=== PATIENT | male | born 1975 | race Caucasian/White ===

== ENCOUNTER 2020-11-08 08:19 | Outpatient (REF) | payer MEDICAID, SELFPAY ==
--- NOTE | ~2020-11-08 | XR_ITS ---
EXAMINATION: PELVIS AND RIGHT HIP X-RAY CLINICAL INFORMATION: Pain COMPARISON: None TECHNIQUE: One view of the pelvis and 2 views of the right hip FINDINGS: There are postsurgical changes with plate and screws seen in the right acetabulum. Orthopedic hardware appears intact. There is severe arthritis at the right hip joint with joint space narrowing, osteophyte formation and subchondral cyst formation. There is a flattening of the right femoral head. The very mild arthritis at the left hip joint with small osteophytes. Bones of the pelvis are otherwise unremarkable. There are degenerative changes of the visualized lower lumbar spine. Soft tissues are unremarkable. XR/XR pelvis 1-2V IMPRESSION: Postsurgical changes to the right acetabulum with plate and screws. Severe right hip arthritis.
--- NOTE | ~2020-11-08 | XR_ITS ---
EXAMINATION: PELVIS AND RIGHT HIP X-RAY CLINICAL INFORMATION: Pain COMPARISON: None TECHNIQUE: One view of the pelvis and 2 views of the right hip FINDINGS: There are postsurgical changes with plate and screws seen in the right acetabulum. Orthopedic hardware appears intact. There is severe arthritis at the right hip joint with joint space narrowing, osteophyte formation and subchondral cyst formation. There is a flattening of the right femoral head. The very mild arthritis at the left hip joint with small osteophytes. Bones of the pelvis are otherwise unremarkable. There are degenerative changes of the visualized lower lumbar spine. Soft tissues are unremarkable. XR/XR hip RT min 2V IMPRESSION: Postsurgical changes to the right acetabulum with plate and screws. Severe right hip arthritis.
== END 2020-11-08 08:20 | disposition home or self-care (01) ==
LOC: HO.HOSX 08:19
PROVIDERS: Visit Provider Physician Assistant
DX: M25.551 Pain in right hip (principal)
CPT/HCPCS: 72170; 73502; 99202

== ENCOUNTER 2020-12-22 07:57 | Outpatient (REF) | payer MEDICAID, SELFPAY | END 2020-12-22 07:58 | disposition home or self-care (01) | LOC: HO.CT 07:57 | PROVIDERS: Visit Provider Physician Assistant | DX: Z13.89 Encounter for screening for other disorder (principal) ==

== ENCOUNTER 2021-02-26 16:02 | Outpatient (REF) | payer MEDICAID, SELFPAY ==
--- NOTE | ~2021-02-26 | CT_ITS ---
EXAMINATION: CT HIP WITHOUT CONTRAST, RIGHT CLINICAL INFORMATION: Right hip pain. COMPARISON: Pelvic and right hip radiographs dated 11/08/2020. TECHNIQUE: Contiguous axial CT images of the right hip were obtained without contrast. Multiplanar reformats were provided and reviewed. This CT examination was performed using dose optimization techniques as appropriate, variously including the following: *Automated exposure control *Adjustment of mA and/or kV according to patient size (this includes techniques or standardized protocols for targeted exams where dose is matched to indication/reason for exam; i.e. extremities or head) *Use of iterative reconstruction technique DLP: 238 mGy-cm. FINDINGS: Redemonstration of severe superior joint space narrowing with prominent bony remodeling and flattening of the humeral head. Severe subchondral cystic change and subchondral sclerosis with large marginal osteophytes. Multiple ossified loose bodies. No acute fracture or dislocation. Stabilization plate along the posterior aspect of the right iliac without hardware fracture. No perihardware lucency to suggest loosening or infection. No concerning lytic or blastic osseous lesion. The visualized intrapelvic structures are unremarkable. No abnormal soft tissue mass or fluid collection. The visualized muscles and tendons are grossly intact, although evaluation is limited on CT examination. CT/CT hip RT wo con IMPRESSION: 1. Severe right hip osteoarthritis with prominent bony remodeling, similar when compared to prior radiographs. Multiple ossified loose bodies are again noted. 2. No acute fracture or dislocation. 3. Right iliac orthopedic hardware without evidence of complication.
== END 2021-02-26 16:03 | disposition home or self-care (01) ==
LOC: HO.CT 16:02
PROVIDERS: Visit Provider Physician Assistant
DX: M25.551 Pain in right hip (principal)
CPT/HCPCS: 73700

== ENCOUNTER → 2021-03-08 14:26 | Outpatient (BNVA) | payer MEDICAID, SELFPAY | PROVIDERS: Visit Provider Physician Assistant | DX: M16.51 Unilateral post-traumatic osteoarthritis, right hip (principal) | CPT/HCPCS: 99212 ==

== ENCOUNTER → 2021-04-02 14:45 | Outpatient (BNVA) | payer MEDICAID, SELFPAY | PROVIDERS: Visit Provider Orthopaedic Surgery | DX: M16.51 Unilateral post-traumatic osteoarthritis, right hip (principal) | CPT/HCPCS: 99212 ==

== ENCOUNTER → 2021-04-17 09:06 | Outpatient (BNVA) | payer MEDICAID, SELFPAY | PROVIDERS: Visit Provider Orthopaedic Surgery | DX: Z01.812 Encounter for preprocedural laboratory examination (principal); Z01.810 Encounter for preprocedural cardiovascular examination | CPT/HCPCS: 36415; 80048; 85025 ==

== ENCOUNTER → 2021-05-17 09:34 | Outpatient (BNVA) | payer MEDICAID, SELFPAY | PROVIDERS: Visit Provider Physician Assistant | DX: Z01.818 Encounter for other preprocedural examination (principal); M16.51 Unilateral post-traumatic osteoarthritis, right hip | CPT/HCPCS: 99212 ==

== ENCOUNTER 2021-05-22 06:05 | Inpatient (IN) | payer MEDICAID, SELFPAY ==
--- NOTE | 2021-04-17 10:28 | ECG_ITS ---
Test Reason : preop Blood Pressure : / mmHG Vent. Rate : 058 BPM Atrial Rate : 058 BPM P-R Int : 154 ms QRS Dur : 088 ms QT Int : 440 ms P-R-T Axes : 057 009 031 degrees QTc Int : 431 ms Sinus bradycardia Otherwise normal ECG No previous ECGs available Referred By: Justin Szymanski Electronically Signed By:SERA MCCLURE
[2021-05-15 11:56] VITALS: BP 158/99; PULSE 64; RESP 16; O2SAT 99; BMI 32.1
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
[2021-05-15 15:24] LABS: MRSA Nasal PCR NEGATIVE (Negative); SA Nasal PCR NEGATIVE (Negative)
[2021-05-22] VITALS (20 sets, daily range): BP systolic 118–183; BP diastolic 80–116; PULSE 71–93; RESP 14–20; TEMP 36.4–37.7; O2SAT 94–100
--- NOTE | ~2021-05-22 | XR_ITS ---
EXAMINATION: XR PELVIS CLINICAL INFORMATION: Post right hip replacement COMPARISON: Previous x-ray most recent October [address] February 2021 TECHNIQUE: AP view of the pelvis. FINDINGS: There is a new right hip replacement in satisfactory position. No fracture or dislocation is seen. There is orthopedic hardware in the right iliac bone that appears unchanged. Bones of the pelvis are otherwise unremarkable. The left hip joint is unremarkable. There are degenerative changes of the visualized lower lumbar spine. There are postsurgical changes to the soft tissues. XR/XR pelvis 1-2V IMPRESSION: Satisfactory appearance of right hip replacement.
[2021-05-22] MEDS: oxyCODONE HCl ER 10 MG TAB.ER.12H PO ×2 (06:43→20:10)
[2021-05-22 06:59] LABS: Hematocrit 41.7 % (42.0-52.0); Hemoglobin 14.5 g/dl (14.0-18.0); Mean Corpuscular HGB Conc 34.8 g/dl (31.0-36.0); Mean Corpuscular Hemoglobin 31.5 pg (27.0-33.0); Mean Corpuscular Volume 90.7 fL (80.0-98.0); Mean Platelet Volume 10.2 fL (9.4-12.4); Platelet Count 247 X10*3/uL (160-400); Red Cell Distribution Width 11.9 % (11.0-16.0); White Blood Count 6.8 X10*3/uL (4.8-10.8)
[2021-05-22 07:04] LABS: INTERNATIONAL NORM RATIO 0.9 (0.9-1.1); Prothrombin Time 10.5 SEC (9.9-13.0)
[2021-05-22 07:13] LABS: COVID-19 Test Negative (Negative); IDNOW Serial# 08D9AD1C
[2021-05-22 07:20] LABS: Alanine Aminotransferase 15 U/L (0-40); Albumin Level 4.1 g/dL (3.5-5.0); Alkaline Phosphatase 110 U/L (39-117); Anion Gap 11 (12-20); Aspartate Amino Transferase 20 U/L (5-37); Bilirubin Total 0.7 mg/dL (0.0-1.0); Blood Urea Nitrogen 18 mg/dL (9-16); Calcium 8.9 mg/dL (8.4-10.2); Carbon Dioxide 29 mmol/L (22-29); Chloride 107 mmol/L (96-108); Creatinine Clr Calc Pharmacy 87.8; Estimated Glomerular Filt Rate > 60; Glucose Fasting 106 mg/dL (60-99); Potassium 4.8 mmol/L (3.3-5.1); Sodium 142 mmol/L (135-145); Total Protein 7.1 g/dL (6.5-8.0)
[2021-05-22] MEDS: Lactated Ringers 1,000 ML 100 ML IVCONT (07:32)
--- NOTE | 2021-05-22 09:47 | MHC.SHP ---
Pre-Procedural Eval Section A Date of Service: 05/22/21 The patient is an INPATIENT: No Changes since office visit: Yes Patient answered all questions; No Cold of Flu in the past 2 weeks, No New Medical Problems and No Changes in Medication The History & Physical has been completed within 30 days and I have reviewed it.: Yes Section B Chief Complaint: RT MICHAEL Allergies: Allergies Allergy/AdvReac Type Severity Reaction Status Date / Time No Known Allergies Allergy Verified 05/17/21 09:42 [No Known Allergies*] Plan I have reviewed the history and physical and performed a pertinent physical examination on my patient. No changes have occurred unless specified.
--- NOTE | 2021-05-22 09:48 | P.BOP_ITS ---
Brief Operative Note Date of Service: 05/22/21 Pre-op diagnosis: Right hip OA Post-op diagnosis: same Procedure: Right MICHAEL Implants: Charlie trident2 52/ 20 deg liner and accolade 2 127 deg #5 with + 5/ 36 ceramic head Surgeon: Justin Szymanski MD Anesthesia: GETA and local Was an [employer] used for this Procedure?: Yes [employer] Sawyer: Sherri Hobbs Estimated blood loss (mL): 200 Pathology: other Condition: stable Disposition: PACU
[2021-05-22] MEDS: HYDROmorphone HCl 0.5 MG/0.5 ML SYRINGE 0.25 MG IVPUSH ×7 (09:54→22:57)
[2021-05-22] MEDS: oxyCODONE HCl Immed Release 5 MG TABLET 10 MG PO ×2 (10:14→20:09)
[2021-05-22] MEDS: fentaNYL citrate/PF 100 MCG/2 ML VIAL 25 MCG IVPUSH ×4 (10:15→10:30)
[2021-05-22] MEDS: Dextrose 5 % and 0.45 % NaCl 1,000 ML 80 ML IVCONT (12:38)
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
[2021-05-22] MEDS: PHENobarbitaL sodium 130 MG/ML VIAL 212 MG IM (17:14)
[2021-05-22] MEDS: Docusate Sodium 100 MG CAPSULE PO (20:10)
[2021-05-22] MEDS: PHENobarbitaL sodium 65 MG/ML VIAL 159 MG IM ×2 (20:10→22:56)
[2021-05-22] MEDS: Celecoxib 200 MG CAPSULE PO (20:10)
[2021-05-23] VITALS (8 sets, daily range): BP systolic 124–145; BP diastolic 64–84; PULSE 66–93; RESP 17–18; TEMP 36.3–37.3; O2SAT 97–100
[2021-05-23] MEDS: Dextrose 5 % and 0.45 % NaCl 1,000 ML 80 ML IVCONT (03:00)
[2021-05-23] MEDS: HYDROmorphone HCl 0.5 MG/0.5 ML SYRINGE 0.25 MG IVPUSH ×3 (03:00→23:57)
--- NOTE | 2021-05-23 08:26 | P.PNOP_ITS ---
Subjective Subjective Date of Service: 05/23/21 Interval history: Postop day 1 status post right total hip arthroplasty Patient states he has some discomfort in the right leg but tolerating well. He has been up and out of bed Denies shortness of breath chest pain or palpitations. Physical Exam Vital Signs: Vital Signs: Last Vital Signs Temp 98.5 F 05/23/21 08:00 Pulse 66 05/23/21 08:00 Resp 18 05/23/21 08:00 BP 143/83 H 05/23/21 08:00 Pulse Ox 99 05/23/21 08:00 Body Mass Index 32.1 Const: General: cooperative, healthy appearing and no acute distress Resp: Effort & Inspection: normal respiratory effort and able to speak in complete sentences Cardio: Rate: regular rate Peripheral pulses: Peripheral pulses 2+ throughout GI: Palpation (GI): Soft to palpation Skin: General skin exam: no rashes or lesions noted Extrem: Other: Right hip bandage intact. There is mild swelling and tenderness to the incision area. Neurovascularly intact. Procedures Date of Service Date of Service: 05/23/21 Progress Note: A&P Assessment and plan (1) History of total right hip arthroplasty: Status: Acute Assessment and Plan: Continue pain management Begin Lovenox for DVT prophylaxis Physical therapy and occupational therapy for right total hip arthroplasty with posterior precautions Dispo planning: PT eval and pain management Fall Risk Details Current Medications: Current Medications Acetaminophen (Acetaminophen 325 Mg Tablet) 650 mg PO Q6H PRN PRN Reason: Pain, Mild (Pain Scale 1-3) Aspirin (Aspirin 325 Mg Tablet) 325 mg PO BID [facility] Celecoxib (Celecoxib 200 Mg Capsule) 200 mg PO BID [facility] Last Admin: 05/22/21 20:10 Dose: 200 mg Documented by: Docusate Sodium (Docusate Sodium 100 Mg Capsule) 100 mg PO BID [facility] Last Admin: 05/22/21 20:10 Dose: 100 mg Documented by: Folic Acid (Folic Acid 1 Mg Tablet) 1 mg PO DAILY [facility] Stop: 05/25/21 09:01 Hydromorphone HCl (Hydromorphone Hcl 0.5 Mg/0.5 Ml Syringe) 0.25 mg IVPUSH Q4H PRN; Protocol PRN Reason: Pain, Severe (Pain Scale 7-10) Last Admin: 05/23/21 03:00 Dose: 0.25 mg Documented by: Dextrose/Sodium Chloride (D51/2ns) 1,000 mls @ 80 mls/hr IVCONT .[id number] [facility] Last Admin: 05/23/21 03:00 Dose: 80 mls/hr Documented by: Medication (No Benzodiazepines) 1 each MISCELLANE DAILY [facility] Ondansetron HCl (Ondansetron Hcl 4 Mg/2 Ml Vial) 4 mg IVPUSH Q8H PRN PRN Reason: Nausea and Vomiting Oxycodone HCl (Oxycodone Hcl Immed Release 5 Mg Tablet) 10 mg PO Q4H PRN PRN Reason: Pain, Moderate (Pain Scale 4-6 Last Admin: 05/22/21 20:09 Dose: 10 mg Documented by: Oxycodone HCl (Oxycodone Hcl Er 10 Mg Tab.Er.12h) 10 mg PO BID [facility] Last Admin: 05/22/21 20:10 Dose: 10 mg Documented by: Phenobarbital (Phenobarbital 15 Mg Tablet) 45 mg PO BID [facility]; Protocol Stop: 05/24/21 21:01 Phenobarbital (Phenobarbital 30 Mg Tablet) 30 mg PO BID [facility]; Protocol Stop: 05/26/21 21:01 Phenobarbital (Phenobarbital 30 Mg Tablet) 30 mg PO DAILY [facility]; Protocol Stop: 05/28/21 09:01 Sodium Chloride (0.9 % Sodium Chloride Flush 3 Ml Syringe) 3 ml IVFLUSH QSHIFT [facility] Last Admin: 05/23/21 01:31 Dose: Not Given Documented by: Thiamine HCl (Thiamine Hcl 100 Mg Tablet) 100 mg PO DAILY [facility] Stop: 05/25/21 09:01 Time Spent With Patient Time: Total time spent is greater than 50% in coordination of care (as documented) at patient's floor/unit and/or counseling patient: Time with patient: 15 - 24 minutes Quality Stroke Does the patient have a stroke diagnosis?: No VTE Prior VTE?: Yes VTE Risk Level:: Surgical - very high VTE Device Contraindication: N/A - Device Ordered VTE Drug Contraindication: N/A - Med Ordered
[2021-05-23] MEDS: PHENobarbitaL 15 MG TABLET 45 MG PO ×2 (08:27→20:34)
[2021-05-23] MEDS: Docusate Sodium 100 MG CAPSULE PO ×2 (08:27→20:34)
[2021-05-23] MEDS: 0.9 % Sodium Chloride Flush 3 ML SYRINGE IVFLUSH ×3 (08:28→23:57)
[2021-05-23] MEDS: Thiamine HCL 100 MG TABLET PO (08:28)
[2021-05-23] MEDS: Celecoxib 200 MG CAPSULE PO ×2 (08:28→20:34)
[2021-05-23] MEDS: Folic Acid 1 MG TABLET PO (08:28)
[2021-05-23] MEDS: oxyCODONE HCl ER 10 MG TAB.ER.12H PO ×2 (08:28→20:34)
[2021-05-23 09:37] LABS: Basophils Percent Auto 0.3 % (0-2); Eosinophils Absolute Auto 0.1 X10*3/uL (0.0-0.4); Eosinophils Percent Auto 0.5 % (0-4); Hematocrit 28.8 % (42.0-52.0); Imm Gran Abs Auto 0.09 X10*3/uL (0.00-0.03); Imm Gran Pct Auto 0.6 % (0.0-0.4); Lymphocytes Absolute Auto 2.2 X10*3/uL (1.2-4.9); Lymphocytes Percent Auto 14.9 % (20-40); MANUAL DIFF FLAG SCAN; Mean Corpuscular HGB Conc 34.7 g/dl (31.0-36.0); Mean Corpuscular Hemoglobin 31.4 pg (27.0-33.0); Mean Corpuscular Volume 90.6 fL (80.0-98.0); Mean Platelet Volume 11.1 fL (9.4-12.4); Monocytes Absolute Auto 1.6 X10*3/uL (0.1-1.2); Monocytes Percent Auto 10.7 % (2-11); Neutrophils Absolute Auto 10.9 x10*3/uL (2.0-8.3); Platelet Count 192 X10*3/uL (160-400); Red Blood Count 3.18 X10*6/uL (4.60-5.80); Red Cell Distribution Width 11.9 % (11.0-16.0); SCAN SMEAR FLAG 1; White Blood Count 14.9 X10*3/uL (4.8-10.8)
[2021-05-23] MEDS: oxyCODONE HCl Immed Release 5 MG TABLET 10 MG PO ×2 (09:42→14:43)
[2021-05-23] MEDS: Acetaminophen 325 MG TABLET 650 MG PO (09:42)
[2021-05-23] MEDS: Enoxaparin Sodium 40 MG/0.4 ML SYRINGE SUBCUT (09:42)
[2021-05-23 09:51] LABS: Anion Gap 12 (12-20); Blood Urea Nitrogen 14 mg/dL (9-16); Carbon Dioxide 25 mmol/L (22-29); Chloride 105 mmol/L (96-108); Creatinine Clr Calc Pharmacy 110.3; Estimated Glomerular Filt Rate > 60; Glucose Fasting 95 mg/dL (60-99); Potassium 4.2 mmol/L (3.3-5.1); Sodium 138 mmol/L (135-145)
[2021-05-23 10:19] LABS: SLIDE REVIEW VERIFIED
--- NOTE | 2021-05-23 13:37 | MHC.CM.PN ---
met with pt who will be dcd tomorrow pt is receommending home with physical therapy referral to [facility] pt will be going to s/o home when dcd [address] rosa notified
--- NOTE | 2021-05-23 13:38 | HO.POSTANES ---
Post Anesthesia Evaluation Post Anesthesia Evaluation Vital Signs: Vital Signs Temp Pulse Resp BP Pulse Ox 05/23/21 11:39 99.1 F 84 18 124/64 98 05/23/21 09:25 66 143/83 H 99 05/23/21 08:00 98.5 F 66 18 143/83 H 99 05/23/21 04:00 97.4 F 77 17 142/84 H 99 Anesthesia: General Mental Status: Awake Pain Control: Satisfactory Nausea/Vomiting: None Hydration: Adequate Anesthesia-Related Issues: No Anes. Related Issues
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
[2021-05-24] VITALS (7 sets, daily range): BP systolic 110–131; BP diastolic 55–68; PULSE 68–85; RESP 16–18; TEMP 36.9–37.1; O2SAT 98
[2021-05-24] MEDS: HYDROmorphone HCl 0.5 MG/0.5 ML SYRINGE 0.25 MG IVPUSH (05:35)
[2021-05-24 05:46] LABS: Hematocrit 23.1 % (42.0-52.0); Hemoglobin 7.8 g/dl (14.0-18.0); Mean Corpuscular HGB Conc 33.8 g/dl (31.0-36.0); Mean Corpuscular Hemoglobin 31.3 pg (27.0-33.0); Mean Corpuscular Volume 92.8 fL (80.0-98.0); Mean Platelet Volume 11.3 fL (9.4-12.4); Platelet Count 158 X10*3/uL (160-400); Red Blood Count 2.49 X10*6/uL (4.60-5.80); Red Cell Distribution Width 12.1 % (11.0-16.0); White Blood Count 10.2 X10*3/uL (4.8-10.8)
[2021-05-24 06:09] LABS: Anion Gap 10 (12-20); Blood Urea Nitrogen 16 mg/dL (9-16); Calcium 7.7 mg/dL (8.4-10.2); Carbon Dioxide 26 mmol/L (22-29); Chloride 107 mmol/L (96-108); Estimated Glomerular Filt Rate > 60; Glucose Fasting 101 mg/dL (60-99); Potassium 4.3 mmol/L (3.3-5.1); Sodium 139 mmol/L (135-145)
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
[2021-05-24] MEDS: Celecoxib 200 MG CAPSULE PO (08:57)
[2021-05-24] MEDS: Folic Acid 1 MG TABLET PO (08:57)
[2021-05-24] MEDS: Docusate Sodium 100 MG CAPSULE PO (08:57)
--- NOTE | 2021-05-24 08:57 | P.DS_ITS ---
DS: Providers Provider Date of Service: 05/26/21 Date of admission: 05/22/21 06:05 Primary care physician: Unknown Physician Consults: 05/22/21 11:23 Consult to Hospitalist Routine Consulting Provider: Hospitalist Reason For Exam: medical management, ETOH Use DS: Diagnosis Discharge Diagnosis (1) History of total right hip arthroplasty: Status: Acute DS: Summary Hospital Course Hospital Course: The patient underwent a successful rigth total hip arthroplasty, was transferred to PACU and then to the floor to recover. During their stay, their vitals were stable, afebrile at 98.7 . Labs were unremarkable, H/H 7.8/23.1, but he was asymptomatic. Plan was to check h/h outpatient and transfuse prn. POD 1 he was started on Lovenox for DVT ppx, they also received PT/OT services twice a day. Prior to discharge, their dressing was change, incision clean dry and intact, new Aquacel dressing applied and the plan was to be discharged home with VNA svs Time Spent with Patient Time attestation: Total time spent providing and/or coordinating discharge services: Discharge coordination time: Less than 30 minutes Quality: Stroke Does the patient have a stroke diagnosis?: No Physical Exam Vital Signs: Vital Signs: Last Vital Signs Temp 98.4 F 05/24/21 04:00 Pulse 72 05/24/21 04:00 Resp 18 05/24/21 06:34 BP 130/64 05/24/21 04:00 Pulse Ox 98 05/24/21 06:05 Body Mass Index 32.1 Const: General: cooperative, healthy appearing and no acute distress Resp: Effort & Inspection: normal respiratory effort and able to speak in complete sentences Cardio: Rate: regular rate Peripheral pulses: Peripheral pulses 2+ throughout GI: Palpation (GI): Soft to palpation Skin: General skin exam: no rashes or lesions noted Extrem: Other: incision clean dry and intact. Declo intact. No erythema or effusion. Calf supple nontender. Neurovascularly intact. DS: Data Data Completed and Pending Completed studies during hospitalization [Text1]: Pending at discharge 05/22/21 09:15 Surgical [PTH] Routine Labs on day of discharge: Laboratory Results - last 24 hr 05/23/21 05/23/21 05/24/21 08:40 08:40 05:22 WBC 14.9 H 10.2 RBC 3.18 L D 2.49 L D Hgb 10.0 L D 7.8 L D Hct 28.8 L D 23.1 L MCV 90.6 92.8 MCH 31.4 31.3 MCHC 34.7 33.8 RDW 11.9 12.1 Plt Count 192 158 L MPV 11.1 11.3 Immature Gran % (Auto) 0.6 H Neut % (Auto) 73.0 Lymph % (Auto) 14.9 L [place] % (Auto) 10.7 Eos % (Auto) 0.5 Baso % (Auto) 0.3 Lymph # (Auto) 2.2 [place] # (Auto) 1.6 H Eos # (Auto) 0.1 Baso # (Auto) 0.0 Abs Immat Gran (auto) 0.09 H Absolute Neuts (auto) 10.9 H Absolute Nucleated RBC 0.000 0.000 Nucleated RBC % (auto) 0.0 0.0 Smear Tech's Comments VERIFIED Sodium 138 Potassium 4.2 Chloride 105 Carbon Dioxide 25 Anion Gap 12 BUN 14 Creatinine 0.90 Estim Creat Clear Calc 110.3 Estimated GFR > 60 Fasting Glucose 95 Calcium 8.0 L D 05/24/21 05:22 WBC RBC Hgb Hct MCV MCH MCHC RDW Plt Count MPV Immature Gran % (Auto) Neut % (Auto) Lymph % (Auto) [place] % (Auto) Eos % (Auto) Baso % (Auto) Lymph # (Auto) [place] # (Auto) Eos # (Auto) Baso # (Auto) Abs Immat Gran (auto) Absolute Neuts (auto) Absolute Nucleated RBC Nucleated RBC % (auto) Smear Tech's Comments Sodium 139 Potassium 4.3 Chloride 107 Carbon Dioxide 26 Anion Gap 10 L BUN 16 Creatinine 0.91 Estim Creat Clear Calc 109.0 Estimated GFR > 60 Fasting Glucose 101 H Calcium 7.7 L Discharge Plan Discharge Patient Disposition: Home Health Service Discharge Diagnosis: s/p RT MICHAEL Referrals: Ralph LYNN [Outside] - 1 Day ([facility] FOR LOVENOX AND HOME PHYSICAL THERAPY, START OF CARE WILL BE TOMORROW 05/25/21. ) Lawanda Hollins PA-C [Physician Top Polisher] - 2 Weeks (06/04/21 09:00 [facility] Lawanda Hollins PA-C) Discharge Medications: New celecoxib 200 mg Capsule 200 mg PO BID 30 Days Qty: 60 RF: 0 acetaminophen 325 mg Tablet 650 mg PO Q6H PRN (Reason: Pain, Mild (Pain Scale 1-3)) 30 Days Qty: 240 RF: 0 enoxaparin 40 mg/0.4 mL Syringe 40 mg subcut Q24H 42 Days Qty: 16.8 RF: 0 oxycodone 10 mg tablet 10 mg PO Q4H PRN (Reason: Pain, Moderate (Pain Scale 4-6) 7 Days Qty: 42 RF: 0 docusate sodium 100 mg Capsule 100 mg PO BID 30 Days Qty: 60 RF: 0 Continued gabapentin 800 mg Tablet 800 mg PO BID RF: 0 lisinopril 40 mg tablet 1 tab PO DAILY RF: 0 hydrochlorothiazide 12.5 mg Tablet 12.5 mg PO DAILY RF: 0 (DME) Raised toilet seat See Rx Instructions .ROUTE .MEDSUPPLY Qty: 1 RF: 0 (DME) walker Misc See Rx Instructions .MEDSUPPLY Qty: 1 RF: 0 Discontinued ibuprofen 800 mg Tablet 800 mg PO Q8H PRN (Reason: Pain) RF: 0 acetaminophen 325 mg tablet 650 mg PO Q4-6H PRN (Reason: fever or pain) 7 Days Qty: 30 RF: 0 Discharge Orders: Discharge Order (Routine); Ordered 05/24/21 Ordered By: Sherri Hobbs Diet: regular diet Activity on Discharge: Use cane or walker Stand Alone Forms: Patient Portal Discharge page Care Plan Goals: Restore function of joint Health Concerns: none Plan of Treatment: Physical Therapy Pain management DVT prophylaxis Assessment: * Physical Therapy for Total hip arthroplasty: posterior precautions, gait training, ROM, strength * Limit stair climbing * No showering, no tub bath-keep dressing clean, dry and intact * No driving x6 weeks * Continue Lovenox once a day x 4 weeks * Follow up with [facility] in 2 weeks Discharge Date/Time: 05/24/21 10:22
[2021-05-24] MEDS: Thiamine HCL 100 MG TABLET PO (08:58)
[2021-05-24] MEDS: oxyCODONE HCl Immed Release 5 MG TABLET 10 MG PO (08:58)
[2021-05-24] MEDS: oxyCODONE HCl ER 10 MG TAB.ER.12H PO (08:58)
[2021-05-24] MEDS: PHENobarbitaL 15 MG TABLET 45 MG PO (08:59)
[2021-05-24] MEDS: Enoxaparin Sodium 40 MG/0.4 ML SYRINGE SUBCUT (08:59)
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
--- NOTE | 2021-05-24 09:45 | MHC.CM.PN ---
PT DISCHARGING TODAY HOME W/HVNA FOR [facility] ([facility]) AND HOME OT/PT, PT WILL ARRANGE TRNSPORT
--- NOTE | 2021-05-25 13:10 | W.PM.OPN ---
Operative Note Operative Note Date of Service: 05/22/21 Narrative: Pre-op diagnosis: Right hip OA Post-op diagnosis: same Procedure: Right MICHAEL Implants: Charlie trident2 52/ 20 deg liner and accolade 2 127 deg #5 with + 5/ 36 ceramic head Surgeon: Justin Szymanski MD Anesthesia: GETA and local Was an Field Evidence Technician used for this Procedure?: Yes Field Evidence Technician: Sherri Hobbs Estimated blood loss (mL): 200 Pathology: other Condition: stable Disposition: PACU Procedure in detail: Patient was brought into the operating room and placed in the left lateral decubitus position. All bony prominences were well padded and the limb was prepped and draped in standard sterile fashion. Time-out was called to identify proper site procedure proper surgeon IV antibiotics and 1 g of transaxemic acid were administered. I began by making a curvilinear incision over the posterolateral aspect of the greater trochanter and over the majority of the prior incision. Dissection was taken down to the tensor fascia which was incised in line with the incision and a Charnley retractor was placed. Cautery was used to maintain hemostasis. A werewolf device was also used. The hip was internally rotated and the external rotators were identified. There was abundanst scar tissue and ectopic bone adejacent to the acetabulum. The vessels were cauterized and a full-thickness capsular/external rotator layer was developed starting just proximal to the piriformis. This layer was tagged and a dull Hohmann retractor was placed underneath the neck in the hip was dislocated. The head was defromed and eburnated. A neck cut was made 1 cm proximal to the lesser trochanter and the head and neck were removed and measured on the back table. I started with a _44____ and sequentially reamed up to a size _52___ and impacted a ____52cup____ at approximately 45 degrees of inclination and 25 degrees of version. I then placed a __20 deg liner and turned my attention to the femur. I identified the piriformis insertion and used this as a starting point for my leeanneie cutter. The medius tendon was protected with a Hibs retractor. I then used a Charnley awl to identify the canal and a curved curette to remove the lateral bone. I irrigated copiously. I then sequentially broached in the patient's natural version to a size __#5___ and placed my trial implants. Using a trail head I took the hip through range of motion. I was very satisfied with the stability and length. Therefore I removed all instrumentation and copiously irrigated. I placed my final femoral implant and again took the hip through range of motion with different head sizes. I selected a +5 36 ceramic head. This was impacted in place. I then irrigated for 3 minutes with iodine and placed 1 g of local tranaxemic acid. I then performed a capsular closure with 2.0 fiberwire, Eliana's fascia with 0 Vicryl, subcuticular with 2-0 Vicryl and the skin with milady. Patient was placed into a sterile dressing. Radiographs were obtained at the completion of the case and I was satisfied with the component position. Patient was extubated brought to the recovery room in stable condition.
== END 2021-05-24 10:22 | disposition home health service (06) | DRG 301 ==
LOC: HO.SSSA 06:10 → HO.S3 10:38
PROVIDERS: Internal Medicine; Nurse Practitioner; Physician Assistant; Admitting Provider Orthopaedic Surgery; PCP Internal Medicine; Visit Provider Orthopaedic Surgery
PROC: 0SR903A Replacement of Right Hip Joint with Ceramic Synthetic Substitute, Uncemented, Open Approach (ICD-10-PCS; CPT 27130; principal; 2021-05-22 07:30)
DX: M16.51 Unilateral post-traumatic osteoarthritis, right hip (principal); D62 Acute posthemorrhagic anemia; I10 Essential (primary) hypertension; F10.20 Alcohol dependence, uncomplicated; F17.210 Nicotine dependence, cigarettes, uncomplicated; Z71.6 Tobacco abuse counseling; Z20.822 Contact with and (suspected) exposure to COVID-19; Z86.718 Personal history of other venous thrombosis and embolism; Z79.899 Other long term (current) drug therapy
CPT/HCPCS: 36415; 72170; 80048; 80053; 85025; 85027; 85610; 86850; 86900; 86901; 87635; 87640; 87641; 88305; 88311; 93005; 97110; 97116; 97161; 97165; C1776; J0131; J0690; J1100; J1170; J1650; J1885; J2250; J2405; J2560; J3010

== ENCOUNTER 2021-06-04 10:15 | Outpatient (REF) | payer MEDICAID, SELFPAY ==
[2021-06-04 11:27] LABS: MANUAL DIFF FLAG NO
[2021-06-04 11:43] LABS: Basophils Absolute Auto 0.1 X10*3/uL (0.0-0.2); Basophils Percent Auto 0.7 % (0-2); Eosinophils Absolute Auto 0.4 X10*3/uL (0.0-0.4); Eosinophils Percent Auto 3.9 % (0-4); Hematocrit 32.6 % (42.0-52.0); Hemoglobin 10.8 g/dl (14.0-18.0); Imm Gran Abs Auto 0.13 X10*3/uL (0.00-0.03); Imm Gran Pct Auto 1.4 % (0.0-0.4); Lymphocytes Absolute Auto 1.6 X10*3/uL (1.2-4.9); Lymphocytes Percent Auto 17.8 % (20-40); Mean Corpuscular HGB Conc 33.1 g/dl (31.0-36.0); Mean Corpuscular Volume 93.7 fL (80.0-98.0); Mean Platelet Volume 9.9 fL (9.4-12.4); Monocytes Absolute Auto 0.7 X10*3/uL (0.1-1.2); Monocytes Percent Auto 7.8 % (2-11); Neutrophils Absolute Auto 6.2 x10*3/uL (2.0-8.3); Neutrophils Percent Auto 68.4 % (45-73); Platelet Count 464 X10*3/uL (160-400); Red Blood Count 3.48 X10*6/uL (4.60-5.80); Red Cell Distribution Width 12.4 % (11.0-16.0); White Blood Count 9.1 X10*3/uL (4.8-10.8)
== END 2021-06-04 10:16 | disposition home or self-care (01) ==
LOC: HO.LAB 10:15
PROVIDERS: Orthopaedic Surgery; Visit Provider Physician Assistant
DX: Z47.1 Aftercare following joint replacement surgery (principal); D64.9 Anemia, unspecified; Z96.641 Presence of right artificial hip joint
CPT/HCPCS: 36415; 85025; 99212

== ENCOUNTER → 2021-07-23 09:43 | Outpatient (BNVA) | payer MEDICAID, SELFPAY | PROVIDERS: PCP Internal Medicine; Visit Provider Physician Assistant | DX: Z47.1 Aftercare following joint replacement surgery (principal); Z96.641 Presence of right artificial hip joint | CPT/HCPCS: 99212 ==

== ENCOUNTER 2021-08-20 08:42 | Outpatient (REF) | payer MEDICAID, SELFPAY ==
--- NOTE | ~2021-08-20 | XR_ITS ---
EXAMINATION: XR PELVIS CLINICAL INFORMATION: Pain. COMPARISON: X-ray the pelvis May 2021 CT scan of the right hip February 2021. TECHNIQUE: AP view of the pelvis. FINDINGS: Postoperative changes with plate and screw fixation noted along the right acetabulum as seen previously. There is some heterotopic ossification noted along the inferolateral aspect of the acetabulum is seen previously. Right total hip arthroplasty noted with components in the unchanged and usual position. Left hip joint appears normal. The remaining bones joints and the pelvis are normal. There is spondylosis of the partially visualized lumbosacral spine with degenerative disc changes present at the L4-L5 level as before. XR/XR pelvis 1-2V IMPRESSION: No acute abnormality. Postsurgical changes in the right pelvis and hip, unchanged.
== END 2021-08-20 08:43 | disposition home or self-care (01) ==
LOC: HO.HOSX 08:42
PROVIDERS: Visit Provider Orthopaedic Surgery
DX: Z47.1 Aftercare following joint replacement surgery (principal); Z96.641 Presence of right artificial hip joint
CPT/HCPCS: 72170; 99212

== ENCOUNTER 2021-08-23 11:00 | Outpatient (RCR) | payer MEDICAID, SELFPAY ==
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
--- NOTE | 2021-10-26 13:30 | MHC.PT.DC ---
[facility] [place] Office [place] Office [place] Office [address] [phone] F: [phone] F: [phone] F: [phone] F: [phone] Physical Therapy Discharge Report Diagnosis: R MICHAEL Date of Surgery: 05/22/21 Date of Evaluation: 06/21/21 Date of Discharge: 10/26/21 Treatments to Date: 14 Cancellations to Date: 3 No Shows to Date: 5 Discharge Status: Visit Non-compliance Discharge Summary: From last attended session: Pt progressed with resistance well, Pt presents to clinic today with improved hilda and symmetry of gait, decreased antalgia from previous. Pt reports he is starting to feel more normal with appropriate increased strengthening. Electronically signed by: Isidro Guerrero PT. Please sign and return to therapist. Thank you for your referral.
== END 2021-10-26 13:31 | disposition home or self-care (01) ==
LOC: HO.PTCHIC 11:00
PROVIDERS: PCP Internal Medicine; Visit Provider Physician Assistant
DX: Z96.641 Presence of right artificial hip joint (principal)
CPT/HCPCS: 97110; 97112; 97116; 97150; 97161; 97530

== ENCOUNTER 2022-05-27 08:24 | Outpatient (REF) | payer MEDICAID, SELFPAY | END 2022-05-27 08:25 | disposition home or self-care (01) | LOC: HO.HOSX 08:24 | PROVIDERS: Visit Provider Physician Assistant | DX: Z13.89 Encounter for screening for other disorder (principal) ==